=== PATIENT | male | born 1965 | race Two or more races ===

== ENCOUNTER 2016-09-28 02:16 | Emergency (ER) | payer OTHER ==
[~2016-09-28] VITALS: Ht 175.3 cm; Wt 140.6 kg
--- NOTE | 2016-09-28 03:23 | NUR ---
Called to rm, no one in WR.
[2016-09-28] MEDS ORDERED: HYDROMORPHONE INJ 2 MG/ML DISP.SYRIN ONE (03:27)
[2016-09-28] MEDS ORDERED: ONDANSETRON 4 MG TAB.RAPDIS ONE (03:27)
[2016-09-28] MEDS ORDERED: HYDROMORPHONE INJ 2 MG/ML DISP.SYRIN IM ONE (03:30)
[2016-09-28] MEDS ORDERED: ONDANSETRON 4 MG TAB.RAPDIS SL ONE (03:30)
--- NOTE | 2016-09-28 03:30 | NUR ---
50 YO MALE BB SELF. PT IS ALERT X 3, C/O LEFT ARM PIT ABCESS. PT AMBULATED TO ER BED, SKIN WARM AND DRY, RR EVEN AND UNLABORED. AWAITING ORDERS FROM PROVIDER, WILL CONTINUE TO MONITOR
--- NOTE | 2016-09-28 03:35 | NUR ---
MEDICATED PT ORDERED
--- NOTE | 2016-09-28 03:55 | NUR ---
MD VILLAFANA AT BED SIDE FOR I&D
--- NOTE | 2016-09-28 04:30 | NUR ---
PT IS DIAPHORETIC, SPO2 ON ROOM AIR IS 80%. MD NOTIFIED. PLACED PT ON FACE MASK, 6LPM. SPO2 NOW 99 %, WILL CONTINUE TO MONITOR
[2016-09-28] MEDS ORDERED: CEFTRIAXONE 1 G VIAL IM ONE (05:30)
[2016-09-28] MEDS ORDERED: CEFTRIAXONE 1 G VIAL ONE (06:05)
[2016-09-28] MEDS ORDERED: LIDOCAINE /MPF 1% VIAL 5 ML VIAL ONE (06:05)
--- NOTE | 2016-09-28 06:18 | NUR ---
TOOK PT ON FACE MASK, SPO2 IN THE 95% ON ROOM AIR, WILL CONITNUE TO MONITOR
--- NOTE | 2016-09-28 07:56 | NUR ---
REPORT GIVEN TO SANTANA GAN RN FOR OLEG
--- NOTE | 2016-09-28 10:25 | NUR ---
PATIENT ASLEEP.VSS
[2016-09-28 14:12] VITALS: BP 120/82
--- NOTE | 2016-09-28 14:12 | NUR ---
PATIENT DISCHARED,. VSS. AMBULATORY. WILL WAIT FOR CR, ROOM MATE IN THE WAUTING ROOM
== END 2016-09-28 14:13 | disposition home or self-care (01) ==
LOC: ER 02:19
DX: L02.412 Cutaneous abscess of left axilla (principal); E66.01 Morbid (severe) obesity due to excess calories; F15.10 Other stimulant abuse, uncomplicated; I10 Essential (primary) hypertension; E11.9 Type 2 diabetes mellitus without complications; G62.9 Polyneuropathy, unspecified; F20.9 Schizophrenia, unspecified; F17.200 Nicotine dependence, unspecified, uncomplicated; F31.9 Bipolar disorder, unspecified; Z82.49 Family history of ischemic heart disease and other diseases of the circulatory system; Z91.018 Allergy to other foods
CPT/HCPCS: 10060; 96372 ×2; 99284; A4606; A6253; A6402; A6403; A6407; J0696; J1170; Q0162; J3490

== ENCOUNTER 2016-10-04 00:25 | Emergency (ER) | payer OTHER ==
[~2016-10-04] VITALS: Ht 175.3 cm; Wt 140.6 kg
[2016-10-04 00:32] VITALS: BP 135/74
== END 2016-10-04 01:10 | disposition home or self-care (01) ==
LOC: ER 00:25
DX: L02.412 Cutaneous abscess of left axilla (principal); I10 Essential (primary) hypertension; F31.9 Bipolar disorder, unspecified; F20.9 Schizophrenia, unspecified; G62.9 Polyneuropathy, unspecified; G51.0 Bell's palsy; F15.10 Other stimulant abuse, uncomplicated; E11.9 Type 2 diabetes mellitus without complications; Z91.018 Allergy to other foods; Z98.890 Other specified postprocedural states
CPT/HCPCS: A4606; Z7610

== ENCOUNTER 2016-10-06 02:05 | Emergency (ER) | payer OTHER ==
[~2016-10-06] VITALS: Ht 175.3 cm; Wt 140.6 kg
[2016-10-06 02:37] VITALS: BP 143/75
== END 2016-10-06 03:05 | disposition home or self-care (01) ==
LOC: ER 02:08
DX: L02.412 Cutaneous abscess of left axilla (principal); G62.9 Polyneuropathy, unspecified; I10 Essential (primary) hypertension; E11.9 Type 2 diabetes mellitus without complications; F31.9 Bipolar disorder, unspecified; F15.10 Other stimulant abuse, uncomplicated; F20.9 Schizophrenia, unspecified; Z98.890 Other specified postprocedural states; Z91.018 Allergy to other foods
CPT/HCPCS: 99282; A4606; A6407; Z7610

== ENCOUNTER 2017-03-22 11:52 | Emergency (ER) | payer OTHER ==
[~2017-03-22] VITALS: Ht 175.3 cm; Wt 140.6 kg
--- NOTE | 2017-03-22 11:55 | NUR ---
BIBRA 102 AND [employer] FOR DIZZINESS, [id number]/DL IN THE FIELD,FACE SYMMETRICAL. A/OX 4. BREATHING EVEN AND UNLABORED. NO SOB. VITALS STABLE. IV INTACT AND PATENT ON LAC, 18 G. SAFETY AND COMFORT MEASURES IN PLACE. AWAITING MD ORDERS.
[2017-03-22] MEDS ORDERED: IV NS 0.9% 1,000 ML BAG IV ONE (12:00)
--- NOTE | 2017-03-22 12:03 | NUR ---
IVF STARTED LAC, 18 G. TOLERATING WELL.
--- NOTE | 2017-03-22 12:12 | NUR ---
REPEAT BLOOD SUGAR, 360. MD INFORMED.
[2017-03-22 12:30] LABS: BASOPHILS % (AUTO) 0.8 % (0.0-2.0); EOSINOPHILS # (AUTO) 0.1 /CMM (0.0-0.7); EOSINOPHILS % (AUTO) 2.4 % (0.0-6.0); HEMATOCRIT 39 % (39-51); LYMPHOCYTES # (AUTO) 1.3 /CMM (0.8-4.8); MEAN CORPUSCULAR HEMOGLOBIN 28 PG (26.0-33.0); MEAN CORPUSCULAR HGB CONC 34 g/dl (31.0-36.0); MEAN CORPUSCULAR VOLUME 84 fL (80-96); MONOCYTES # (AUTO) 0.4 /CMM (0.1-1.30); MONOCYTES % (AUTO) 6.9 % (2.0-12.0); NEUTROPHILS # (AUTO) 3.3 /CMM (1.8-8.9); NEUTROPHILS % (AUTO) 63.9 % (43.0-81.0); PLATELET COUNT (AUTO) 161 /CMM (150-450); RDW COEFFICIENT OF VARIATION 13.6 (11.5-15.0); WHITE BLOOD COUNT (AUTO) 5.1 K/uL (4.3-11.0)
[2017-03-22] MEDS ORDERED: INSULIN REGULAR, HUMAN 100 UNIT/ML 10 ML VIAL ONE (12:30)
[2017-03-22] MEDS ORDERED: INSULIN REGULAR, HUMAN 100 UNIT/ML 10 ML VIAL SQ ONE (12:30)
[2017-03-22 12:49] LABS: ALANINE AMINOTRANSFERASE 53 U/L (12-78); ALKALINE PHOSPHATASE 78 U/L (46-116); ASPARTATE AMINOTRANSFERASE 67 U/L (15-37); BILIRUBIN,DIRECT 0.2 mg/dL (0.0-0.2); BILIRUBIN,TOTAL 0.6 mg/dL (0.2-1.0); CALCIUM, SERUM 8.2 mg/dL (8.5-10.1); CARBON DIOXIDE 24 mmol/L (21-32); CHLORIDE 98 mmol/L (98-107); CREATININE 1.2 mg/dL (0.6-1.3); LIPASE 188 U/L (73-393); POTASSIUM 3.7 mmol/L (3.5-5.1); SODIUM SERUM 132 mmol/L (136-145); TOTAL PROTEIN, SERUM 8.5 g/dL (6.4-8.2); UREA NITROGEN, BLOOD 12 mg/dL (7-18)
[2017-03-22 12:50] LABS: GLUCOSE 399 mg/dL (74-106)
[2017-03-22 12:51] LABS: TROPONIN I < 0.017 ng/mL (0.00-0.056)
[2017-03-22 13:30] VITALS: BP 124/78
--- NOTE | 2017-03-22 13:31 | NUR ---
IV removed. Catheter intact and site benign. Pressure and 4x4 applied to site. No bleeding noted. Patient discharged in custody in stable condition. Written and verbal after care instructions given. Patient verbalizes understanding of instruction.
== END 2017-03-22 13:31 ==
LOC: ER 11:56
DX: R42 Dizziness and giddiness (principal); E11.65 Type 2 diabetes mellitus with hyperglycemia; G62.9 Polyneuropathy, unspecified; I10 Essential (primary) hypertension; F20.9 Schizophrenia, unspecified; F31.9 Bipolar disorder, unspecified; F17.200 Nicotine dependence, unspecified, uncomplicated; F15.10 Other stimulant abuse, uncomplicated; G51.0 Bell's palsy; Z91.018 Allergy to other foods; Z98.890 Other specified postprocedural states
CPT/HCPCS: 36415; 71010; 80048; 80076; 82962 ×2; 83690; 84484; 85025; 93005; 96360; 96372; 99285; A4606; J1815; J7030; Z7610

== ENCOUNTER 2017-12-05 10:20 | Inpatient (IN) | payer OTHER ==
--- NOTE | 2017-12-05 12:00 | NUR ---
RN NOTE PATIENT WAS TRANSFERRED FROM [facility], [place], [place] REPORT WAS GIVEN MARI, RECEIVED REPORT FROM MARI. RECEIVED PATIENT 52 YEAR OLD MALE BROUGHT IN TO THE HOSPITAL BY AMBULANCE, PATIENT ALERT AND ORIENT X1, HE IS ONLY ABLE TO RESPOND TO HIS NAME AT THIS TIME. PATIENT IS LETHARGIC BUT RESPONSIVE. BREATHING EVEN AND UNLABORED WITH CONTINUOUS O2 OF 2L VIA N/C. ON BIAS CUTTER NORMAL SINUS HR OF 70. F/C INTACT AND PATENT WITH ADEQUATE FLOW OF URINE, JUAN COLOR NOTED. LEFT AC IV SITE INTACT AND PATENT. WOUND PICTURES TAKEN AND DOCUMENTED IN CHART. PATIENT VITAL SIGNS DOCUMENTED AND STABLE. ALL SAFETY MEASURES DONE. BED LOCKED AND LOW POSITION, WITH BED ALARM IN PLACE. PLACED CALL LIGHT WITHIN REACH. WILL CONTINUE TO MONITOR PATIENT CLOSELY
[2017-12-05 12:10] VITALS: BP 111/72
[2017-12-05] MEDS ORDERED: IV NS 0.9% 1,000 ML IV PRN (13:52)
[2017-12-05] MEDS ORDERED: MAGNESIUM HYDROXIDE 30 ML UDC PO PRN (14:00)
[2017-12-05] MEDS ORDERED: Z GUARD REMEDY 2 OZ OINT TP PRN (14:00)
[2017-12-05] MEDS ORDERED: ACETAMINOPHEN 325 MG TABLET PO PRN (14:00)
[2017-12-05] MEDS ORDERED: MAG HYDROX/AL HYDROX/SIMETH 30 ML UDC PO PRN (14:00)
[2017-12-05] MEDS ORDERED: ONDANSETRON HCL/PF 4 MG/2 ML VIAL IVP PRN (14:00)
[2017-12-05 15:15] LABS: ABG BASE EXCESS -4.9 mmol/L; ABG OXYGEN SATURATION 96.1 % (92.0-98.5); ABG PCO2 31.8 mmHg (35.0-45.0); ABG PH 7.391 (7.350-7.450); ABG PO2 90.4 mmHg (75.0-100.0); AaDO2 71.7 mmHg; COHb 0.3 % (0.5-1.5); MetHb 0.6 % (0.0-1.5); O2Hb 95.2 % (94.0-97.0); SITE, ABG Right Brachial; VENT MODE, BG NASAL CANNULA
[2017-12-05] MEDS: CEFTRIAXONE 1 G in IV NS 0.9% 50 ML IV SCH (15:37)
[2017-12-05 16:00] VITALS: BP 115/78
[2017-12-05 16:05] LABS: BASOPHILS % (AUTO) 0.2 % (0.0-2.0); HEMATOCRIT 42 % (39-51); HEMOGLOBIN 14.2 g/dL (13.5-17.5); LYMPHOCYTES # (AUTO) 1.4 /CMM (0.8-4.8); MEAN CORPUSCULAR HEMOGLOBIN 29 PG (26.0-33.0); MEAN CORPUSCULAR HGB CONC 34 g/dl (31.0-36.0); MEAN CORPUSCULAR VOLUME 87 fL (80-96); MONOCYTES % (AUTO) 8.1 % (2.0-12.0); NEUTROPHILS # (AUTO) 9.9 /CMM (1.8-8.9); NEUTROPHILS % (AUTO) 80.7 % (43.0-81.0); PLATELET COUNT (AUTO) 145 /CMM (150-450); RDW COEFFICIENT OF VARIATION 15.6 (11.5-15.0); RED BLOOD CELL COUNT(AUTO) 4.82 MIL/uL (4.5-6.0); WHITE BLOOD COUNT (AUTO) 12.3 K/uL (4.3-11.0)
[2017-12-05 16:14] LABS: APPEARANCE,URINE CLOUDY (CLEAR); BILIRUBIN,URINE 2+ (NEGATIVE); BLOOD, URINE 3+ Ery/uL (NEGATIVE); COLOR,URINE DARK YELLO (YELLOW); KETONES,URINE 1+ (NEGATIVE); LEUKOCYTE ESTERASE ,URINE NEGATIVE (NEGATIVE); NITRITE, URINE NEGATIVE (NEGATIVE); PH,URINE 5.5 (5.0-8.0); PROTEIN,URINE 2+ mg/dl (NEGATIVE); UGLUCOSE NEGATIVE (NEGATIVE)
[2017-12-05 16:19] LABS: ALBUMIN 3.2 g/dL (3.4-5.0); BILIRUBIN,TOTAL 0.9 mg/dL (0.2-1.0); CALCIUM, SERUM 8.5 mg/dL (8.5-10.1); CREATININE 2.9 mg/dL (0.6-1.3); POTASSIUM 3.3 mmol/L (3.5-5.1)
[2017-12-05 16:21] LABS: TROPONIN I 0.052 ng/mL (0.00-0.056)
[2017-12-05 16:33] LABS: BACTERIA,URINE Moderate /HPF (None Seen); SQUAMOUS EPITHELIAL CELL,UR Moderate /HPF (None Seen)
[2017-12-05 16:34] LABS: FINE GRANULAR CASTS,URINE Rare /LPF (None Seen); HYALINE CASTS, URINE Rare /LPF (None Seen)
[2017-12-05 16:45] LABS: THYROID STIMULATING HORMONE 5.902 uIU/mL (0.358-3.74)
--- NOTE | 2017-12-05 19:30 | NUR ---
ARNULFO NOTES RECEIVED PT SLEEPING BUT AROUSES EASILY,RESPONDS TO NAME,FOLLOWS SIMPLE COMMANDS.MONITOR SHOWS NSR RATE OF 92/MIN.DENIES PAIN OR DISCOMFORT.OFFERS NO COMPLAINTS.
[2017-12-05 20:01] VITALS: BP 115/80
[2017-12-05] MEDS: IV NS 0.9% 1,000 ML IV PRN (22:25)
[2017-12-06] VITALS (7 sets, daily range): BP systolic 107–143; BP diastolic 65–86
--- NOTE | 2017-12-06 | NUR ---
ARNULFO/NOTES VSS.LETHARGIC AT TIMES,AROUSES EASILY.TAKING ICE CHIPS WITHOUT DIFFICULTY.MONITOR NSR.
[2017-12-06] MEDS: IV NS 0.9% 1,000 ML IV PRN ×3 (05:37→18:36)
--- NOTE | 2017-12-06 06:30 | NUR ---
ARNULFO NOTES IV SITE REDRESSED,LEAKING,WITH EXCELLENT BLOOD RETURN.MEPILEX TO RT THIGH CHANGED,AND MEPILEX APPLIED TO RT MIDBACK.PT RESPONDS TO NAME,VERBAL AT TIMES.
[2017-12-06 06:46] LABS: HEMATOCRIT 40 % (39-51); HEMOGLOBIN 13.6 g/dL (13.5-17.5); LYMPHOCYTES # (AUTO) 1.2 /CMM (0.8-4.8); LYMPHOCYTES % (AUTO) 8.9 % (20.0-44.0); MEAN CORPUSCULAR HEMOGLOBIN 30 PG (26.0-33.0); MEAN CORPUSCULAR HGB CONC 34 g/dl (31.0-36.0); MEAN CORPUSCULAR VOLUME 88 fL (80-96); MONOCYTES # (AUTO) 0.7 /CMM (0.1-1.30); MONOCYTES % (AUTO) 5.7 % (2.0-12.0); NEUTROPHILS % (AUTO) 85.4 % (43.0-81.0); PLATELET COUNT (AUTO) 122 /CMM (150-450); RDW COEFFICIENT OF VARIATION 15.3 (11.5-15.0); RED BLOOD CELL COUNT(AUTO) 4.51 MIL/uL (4.5-6.0); WHITE BLOOD COUNT (AUTO) 12.9 K/uL (4.3-11.0)
[2017-12-06 07:12] LABS: CALCIUM, SERUM 8.3 mg/dL (8.5-10.1); PHOSPHORUS 4.1 mg/dL (2.5-4.9); POTASSIUM 3.3 mmol/L (3.5-5.1)
--- NOTE | 2017-12-06 07:15 | NUR ---
RN ARNULFO INITIAL NOTES RECEIVED REPORT AND PT FROM PM NURSE. PT RESTING IN BED, A&O X1-2 LETHARGIC AT TIMES DUE TO MENTAL STATUS, MUMBLES SOME WORDS, ON 2L NC SAT ABOVE 97% NO SOB OR ACUTE DISTRESS AT THIS TIME, TIAN CATH DRAINING URINE VIA GRAVITY, LT AC IV RUNNING NS @ 150 ML/HR. NO INFILTRATION NOTED. ALL SAFETY MEASURES INITIATED. PTS NEEDS HANG BED, DVT PUMPS IN PLACE AND ON, ON TELE MON SR WITH HR 60, WILL CONTINUE TO MONITOR.
[2017-12-06 07:17] LABS: CREATINE KINASE MB 9.5 ng/mL (0-3.6)
--- NOTE | 2017-12-06 07:33 | NUR ---
ARNULFO NOTES. REPORT AND CARE OF PT GIVEN TO ARMAND HAJI.
[2017-12-06] MEDS ORDERED: HYDROGEL DRESSING 90 GM TUBE TP SCH (09:00)
[2017-12-06] MEDS ORDERED: HYDROGEL DRESSING 90 GM TUBE TP PRN ×2 (09:00→17:00)
--- NOTE | 2017-12-06 09:02 | NUR ---
WOUND CARE CONSULT: PT PRESENTS WITH IMMOBILITY AND DEEP TISSUE INJURIES (INTACT) TO RT LATERAL ANKLE AND UPPER BACK WELL DEEP TISSUE INJURY IN EVOLUTION TO RT HIP, ALL PRESENT ON ADMISSION. [place] BED WITH ETS AIR ORDERED FOR PT. CURRENT STEFANY SCORE IS 11. ALL SKIN PROTECTION AND WOUND CARE RECOMMENDATIONS DISCUSSED WITH NURSING STAFF. WILL SEE PRN. MANSFIELD IN AGREEMENT WITH PLAN OF CARE. PT NOTED TO HAVE LONG TOENAILS AND FINGERNAILS. Addendum: 12/06/17 at 0906 by KAMI ESCALONA WNDNU Amended: Links added.
--- NOTE | 2017-12-06 11:16 | NUR ---
ADITHYA ARNULFO NOTES CHATO FROM [facility] CALLED AND CONFIRMED POSITIVE BLOOD CULTURES 2 SETS ONE GRAM POSITIVE COCCI IN CLUSTERS AND ONE POSITIVE FOR COAGULASE STAPHYLOCCUCCUS.
[2017-12-06] MEDS ORDERED: POTASSIUM CL. PREMIX PERIPHER. 50 ML IV SCH (11:30)
--- NOTE | 2017-12-06 13:57 | NUR ---
RN ARNULFO NOTES PT MORE ALERT AND ORIENTED X2 ABLE TO SPEAK, STATES WOULD LIKE SOME ICE CHIPS AND FOOD, DIET ORDERED WILL NEED TO FEED PT, WILL CONTINUE TO MONITOR.
[2017-12-06] MEDS ORDERED: DEXTROSE 50%-WATER 50 ML DISP.SYRIN IV PRN (14:00)
[2017-12-06] MEDS: CEFTRIAXONE 1 G in IV NS 0.9% 50 ML IV SCH (14:08)
[2017-12-06] MEDS: BLOOD SUGAR DIAGNOSTIC 1 EACH STRIP IN SCH ×2 (17:38→22:01)
[2017-12-06] MEDS: HYDROGEL DRESSING 90 GM TUBE TP SCH (17:39)
[2017-12-06 19:41] LABS: BILIRUBIN,TOTAL 0.7 mg/dL (0.2-1.0)
[2017-12-06 19:42] LABS: ALBUMIN 2.6 g/dL (3.4-5.0); BILIRUBIN,DIRECT 0.3 mg/dL (0.0-0.2)
--- NOTE | 2017-12-06 20:15 | NUR ---
ARNULFO RN OPENING NOTES RECEIVED REPORT FROM ARMAND HAJI. PATIENT A/O X2 W/ LETHARGY BUT EASILY AROUSABLE TO VERBAL & TACTILE STIMULI. ABLE TO STATE NAME & PLACE & FOLLOW SIMPLE COMMANDS. BREATHING EVEN & UNLABORED, TOLERATING O2 @ 2LPM VIA NC & SATING WELL @ 97%. ON TELE W/ SINUS RHYTHM, HR 90S. DENIES ANY RESPIRATORY OR CARDIAC DISTRESS. LEFT AC IV INTACT & PATENT W/ DRESSING CDI & IVF NS INFUSING WELL 150 ML/HR. DENIES ANY PAIN OR DISCOMFORT @ THIS TIME. SAFETY MEASURES MAINTAINED W/ BED ALARM ON & CALL LIGHT WITHIN REACH. WILL CONTINUE TO MONITOR.
--- NOTE | 2017-12-06 20:30 | NUR ---
ARNULFO RN NOTES FED PATIENT 25% OF HIS DINNER. NO COUGHING NOTED WHEN SWALLOWING. ABLE TO TOLERATE REGULAR TEXTURE FOOD & THIN LIQUIDS. HOB ELEVATED WHEN FEEDING & BEFORE & AFTER EATING.
[2017-12-06] MEDS: INSULIN REGULAR, HUMAN 100 UNIT/ML 3 ML VIAL SQ PRN (22:01)
[2017-12-07] VITALS: BP 98/70
[2017-12-07] MEDS: IV NS 0.9% 1,000 ML IV PRN ×2 (03:18→10:40)
[2017-12-07 04:00] VITALS: BP 122/71
[2017-12-07 07:22] LABS: CALCIUM, SERUM 8.3 mg/dL (8.5-10.1); CREATININE 1.4 mg/dL (0.6-1.3); POTASSIUM 3.4 mmol/L (3.5-5.1)
[2017-12-07 08:00] VITALS: BP 110/66
[2017-12-07 08:12] LABS: BASOPHILS % (AUTO) 0.2 % (0.0-2.0); EOSINOPHILS % (AUTO) 0.1 % (0.0-6.0); HEMATOCRIT 34 % (39-51); HEMOGLOBIN 11.9 g/dL (13.5-17.5); LYMPHOCYTES # (AUTO) 1.3 /CMM (0.8-4.8); LYMPHOCYTES % (AUTO) 12.9 % (20.0-44.0); MEAN CORPUSCULAR HEMOGLOBIN 30 PG (26.0-33.0); MEAN CORPUSCULAR HGB CONC 35 g/dl (31.0-36.0); MEAN CORPUSCULAR VOLUME 86 fL (80-96); MONOCYTES # (AUTO) 0.6 /CMM (0.1-1.30); NEUTROPHILS # (AUTO) 8.2 /CMM (1.8-8.9); NEUTROPHILS % (AUTO) 80.8 % (43.0-81.0); PLATELET COUNT (AUTO) 86 /CMM (150-450); RDW COEFFICIENT OF VARIATION 14.6 (11.5-15.0); RED BLOOD CELL COUNT(AUTO) 3.92 MIL/uL (4.5-6.0); WHITE BLOOD COUNT (AUTO) 10.1 K/uL (4.3-11.0)
[2017-12-07] MEDS: BLOOD SUGAR DIAGNOSTIC 1 EACH STRIP IN SCH ×4 (08:14→21:58)
[2017-12-07 08:18] LABS: APPEARANCE,URINE TURBID (CLEAR); BILIRUBIN,URINE NEGATIVE (NEGATIVE); BLOOD, URINE 2+ Ery/uL (NEGATIVE); COLOR,URINE YELLOW (YELLOW); KETONES,URINE NEGATIVE (NEGATIVE); LEUKOCYTE ESTERASE ,URINE NEGATIVE (NEGATIVE); NITRITE, URINE NEGATIVE (NEGATIVE); PROTEIN,URINE TRACE mg/dl (NEGATIVE); UGLUCOSE NEGATIVE (NEGATIVE)
[2017-12-07 08:44] LABS: ALBUMIN 2.4 g/dL (3.4-5.0); BILIRUBIN,DIRECT 0.2 mg/dL (0.0-0.2); BILIRUBIN,TOTAL 0.7 mg/dL (0.2-1.0); TOTAL PROTEIN, SERUM 6.7 g/dL (6.4-8.2)
[2017-12-07 08:45] LABS: WBC,URINE 0-2 /HPF (0-3)
[2017-12-07 08:46] LABS: BACTERIA,URINE Few /HPF (None Seen)
[2017-12-07 08:47] LABS: SQUAMOUS EPITHELIAL CELL,UR Rare /HPF (None Seen); URIC ACID CRYSTALS,URINE Few /HPF (None Seen)
[2017-12-07 08:48] LABS: URINE AMORPHOUS URATE Many /HPF (None Seen)
--- NOTE | 2017-12-07 09:04 | NUR ---
received pt from night, shift, alert, follows commands, SR, on 2L 02 sat well, lungs clear no edema, tolerates diet, f/c low output, MD aware, v/s stable, no pain, pt turned and repositioned.
[2017-12-07] MEDS: HYDROGEL DRESSING 90 GM TUBE TP SCH (09:29)
[2017-12-07] MEDS ORDERED: POTASSIUM CHLORIDE 20 MEQ TAB.PRT.SR PO SCH (11:00)
[2017-12-07 11:11] LABS: LYMPHOCYTES % (MANUAL) 14 % (16-48); MONOCYTES % (MANUAL) 1 % (0-11.0); NEUTROPHILS % (MANUAL) 85 (42-76)
[2017-12-07 11:34] LABS: APPEARANCE,URINE CLEAR (CLEAR); BILIRUBIN,URINE NEGATIVE (NEGATIVE); BLOOD, URINE 2+ Ery/uL (NEGATIVE); COLOR,URINE YELLOW (YELLOW); KETONES,URINE NEGATIVE (NEGATIVE); LEUKOCYTE ESTERASE ,URINE NEGATIVE (NEGATIVE); NITRITE, URINE NEGATIVE (NEGATIVE); PROTEIN,URINE 1+ mg/dl (NEGATIVE); UGLUCOSE NEGATIVE (NEGATIVE)
[2017-12-07 12:00] VITALS: BP 102/66
[2017-12-07 12:49] LABS: BACTERIA,URINE Few /HPF (None Seen); SQUAMOUS EPITHELIAL CELL,UR Few /HPF (None Seen); WBC,URINE 0-2 /HPF (0-3)
[2017-12-07] MEDS: CEFTRIAXONE 1 G in IV NS 0.9% 50 ML IV SCH (14:05)
[2017-12-07 16:00] VITALS: BP 109/68
--- NOTE | 2017-12-07 16:12 | NUR ---
pt is resting in the bed, alert, follows commands, drowsy, SR, v/s stable, no pain, pt cleaned, changed and repositioned q2hrs.
[2017-12-07 20:00] VITALS: BP 115/74
--- NOTE | 2017-12-07 20:58 | NUR ---
ARNULFO RN INITIAL NOTES RECEIVED REPORT FROM RUDDY HAJI. PATIENT A/O X2 W/ LETHARGY BUT EASILY AROUSABLE TO VERBAL & TACTILE STIMULI. ABLE TO STATE NAME & PLACE & FOLLOW SIMPLE COMMANDS. BREATHING EVEN & UNLABORED, TOLERATING O2 @ 2LPM VIA NC & SATING WELL @ 98%. ON TELE W/ SINUS RHYTHM, HR 78'S. DENIES ANY SOB. LEFT AC IV INTACT & PATENT W/ DRESSING CDI & IVF NS INFUSING WELL 150 ML/HR. DENIES ANY PAIN OR DISCOMFORT @ THIS TIME. SAFETY MEASURES MAINTAINED W/ BED ALARM ON & CALL LIGHT WITHIN REACH. WILL CONTINUE TO MONITOR.
[2017-12-08] VITALS: BP 141/80
[2017-12-08] MEDS: IV NS 0.9% 1,000 ML IV PRN ×3 (01:23→18:02)
[2017-12-08 04:00] VITALS: BP 112/74
--- NOTE | 2017-12-08 06:44 | NUR ---
RN ARNULFO CLOSING NOTE PT ENDORSED ASLEEP IN BED, AWOKEN THROUGH TO BE CLEANED AND REPOSITIONED, PT REFUSED, AGREED TO REPOSITION BUT NOT WOUND TX AND BED BATH, OFFERED X3, RISK AND BENEFIT EXPLAINED, NO REASON GIVEN BY PT, WILL ENDORSE FOR AM SHIFT NURSE TO F/U WITH PT NON COMPLIANCE BEHAVIOR W/CARE PROVIDED, CL WITHIN REACH ALL NEEDS ATTENDED.
[2017-12-08 08:00] VITALS: BP 105/67
[2017-12-08] MEDS: BLOOD SUGAR DIAGNOSTIC 1 EACH STRIP IN SCH ×4 (08:17→21:48)
[2017-12-08] MEDS: HYDROGEL DRESSING 90 GM TUBE TP SCH (08:18)
[2017-12-08 12:00] VITALS: BP 127/77
[2017-12-08 12:26] LABS: BASOPHILS % (AUTO) 0.4 % (0.0-2.0); EOSINOPHILS % (AUTO) 0.8 % (0.0-6.0); HEMATOCRIT 38 % (39-51); HEMOGLOBIN 12.8 g/dL (13.5-17.5); LYMPHOCYTES # (AUTO) 0.9 /CMM (0.8-4.8); LYMPHOCYTES % (AUTO) 13.6 % (20.0-44.0); MEAN CORPUSCULAR HEMOGLOBIN 30 PG (26.0-33.0); MEAN CORPUSCULAR HGB CONC 34 g/dl (31.0-36.0); MEAN CORPUSCULAR VOLUME 86 fL (80-96); MONOCYTES # (AUTO) 0.4 /CMM (0.1-1.30); NEUTROPHILS # (AUTO) 5.5 /CMM (1.8-8.9); NEUTROPHILS % (AUTO) 79.2 % (43.0-81.0); PLATELET COUNT (AUTO) 72 /CMM (150-450); RDW COEFFICIENT OF VARIATION 14.9 (11.5-15.0); RED BLOOD CELL COUNT(AUTO) 4.36 MIL/uL (4.5-6.0); WHITE BLOOD COUNT (AUTO) 6.9 K/uL (4.3-11.0)
[2017-12-08 12:34] LABS: CALCIUM, SERUM 7.7 mg/dL (8.5-10.1); CREATININE 1.2 mg/dL (0.6-1.3); POTASSIUM 3.7 mmol/L (3.5-5.1)
[2017-12-08] MEDS: INSULIN REGULAR, HUMAN 100 UNIT/ML 3 ML VIAL SQ PRN (12:57)
--- NOTE | 2017-12-08 13:05 | NUR ---
WOUND CARE CONSULT: PT PRESENTS WITH DEEP TISSUE INJURY TO SACRUM WHICH IS INTACT WITH INTACT BLISTER TO RT BUTTOCK. PT CONTINUES TO PRESENT WITH DEEP TISSUE INJURIES TO RT UPPER BACK AND HIP AREAS, PRESENT ON ADMISSION, WHICH ARE NOW IN EVOLUTION. RECOMMENDATIONS MADE FOR SKIN PROTECTION AND WOUND CARE. DISCUSSED WITH NURSING STAFF. PT ON [facility] ETS AIR BED. ALL SKIN PROTECTION MEASURES IN PLACE. WILL SEE PRN. MANSFIELD IN AGREEMENT WITH PLAN OF CARE. Addendum: 12/08/17 at 1307 by KAMI ESCALONA WNDNU Amended: Links added.
[2017-12-08 13:16] LABS: LYMPHOCYTES % (MANUAL) 9 % (16-48); MONOCYTES % (MANUAL) 3 % (0-11.0); NEUTROPHILS % (MANUAL) 88 (42-76)
[2017-12-08] MEDS: CEFTRIAXONE 1 G in IV NS 0.9% 50 ML IV SCH (14:39)
--- NOTE | 2017-12-08 15:00 | NUR ---
RN NOTE PT REPORTED THAT HE URINATED HIMSELF OVER TIAN CATHETER, TIAN CATHETER FLUSHED WITH SOME RESISTANCE AND PAIN REPORTED BY PATIENT. BLADDER CHECKED LATER FOR RESIDUALS, URINE RESIDUALS WAS MAX 60 ML, PER BLADDER SCANNER. URINE COLOR IS DARK ORANGE AND CLOUDY/WITH SEDIMENTS. MD AWARE. TO KEEP TIAN IN PLACE FOR NOW.
[2017-12-08 15:44] LABS: APPEARANCE,URINE CLOUDY (CLEAR); BILIRUBIN,URINE 1+ (NEGATIVE); BLOOD, URINE 3+ Ery/uL (NEGATIVE); COLOR,URINE DARK YELLO (YELLOW); KETONES,URINE NEGATIVE (NEGATIVE); LEUKOCYTE ESTERASE ,URINE TRACE (NEGATIVE); NITRITE, URINE NEGATIVE (NEGATIVE); PROTEIN,URINE 1+ mg/dl (NEGATIVE); UGLUCOSE 1+ mg/dL (NEGATIVE); UROBILINOGEN,URINE >=8.0 EU/dL (0.2)
[2017-12-08 15:51] LABS: BACTERIA,URINE Few /HPF (None Seen); SQUAMOUS EPITHELIAL CELL,UR Few /HPF (None Seen); URINE AMORPHOUS URATE Many /HPF (None Seen)
[2017-12-08 16:00] VITALS: BP 119/72
[2017-12-08 20:00] VITALS: BP 105/70
[2017-12-09] VITALS (7 sets, daily range): BP systolic 111–142; BP diastolic 55–77
[2017-12-09] MEDS: IV NS 0.9% 1,000 ML IV PRN ×3 (01:52→15:59)
[2017-12-09] MEDS: BLOOD SUGAR DIAGNOSTIC 1 EACH STRIP IN SCH ×4 (06:35→22:06)
--- NOTE | 2017-12-09 07:30 | NUR ---
PRESCHOOL ASSISTANT PRINCIPAL INITIAL NOTES: RECEIVED PT IN BED SLEEPING BUT EASY TO AROUSE. A&O X2 WITH PERIODS OF LETHARGY NOTED. ON O2 VIA NC AT 2LPM, SATURATING 97%. ON TELE MONITOR, SINUS AMMY, HR 53 AT THIS TIME. TIAN CATH IN PLACE DRAINING DARK URINE. TREATMENTS TO R HIP AND SACRAL AREA IN PLACE. IV TO RFA #[address], CONNECTED TO NS AT 150ML/HR. PT DENIES ANY PAIN OR DISCOMFORT AT THIS TIME. BED IN LOW LOCKED POSITION, CALL LIGHT WITHIN REACH. WILL CONTINUE TO MONITOR.
[2017-12-09] MEDS: HYDROGEL DRESSING 90 GM TUBE TP SCH (08:36)
--- NOTE | 2017-12-09 10:15 | NUR ---
MERVAT JUDD AT BEDSIDE TO ASSESS PT.
--- NOTE | 2017-12-09 11:05 | NUR ---
URINE COLLECTED FOR UA, SPECIMEN IN [place]. CALLED TO LAB FOR SAP BODS DEVELOPER.
[2017-12-09 11:13] LABS: CALCIUM, SERUM 7.4 mg/dL (8.5-10.1); CREATININE 0.9 mg/dL (0.6-1.3); POTASSIUM 3.2 mmol/L (3.5-5.1)
[2017-12-09 11:40] LABS: BASOPHILS % (AUTO) 0.4 % (0.0-2.0); EOSINOPHILS % (AUTO) 1.4 % (0.0-6.0); HEMATOCRIT 34 % (39-51); HEMOGLOBIN 11.6 g/dL (13.5-17.5); LYMPHOCYTES # (AUTO) 0.9 /CMM (0.8-4.8); LYMPHOCYTES % (AUTO) 14.7 % (20.0-44.0); MEAN CORPUSCULAR HEMOGLOBIN 30 PG (26.0-33.0); MEAN CORPUSCULAR HGB CONC 34 g/dl (31.0-36.0); MEAN CORPUSCULAR VOLUME 87 fL (80-96); MONOCYTES # (AUTO) 0.4 /CMM (0.1-1.30); MONOCYTES % (AUTO) 6.4 % (2.0-12.0); NEUTROPHILS # (AUTO) 4.7 /CMM (1.8-8.9); NEUTROPHILS % (AUTO) 77.1 % (43.0-81.0); PLATELET COUNT (AUTO) 71 /CMM (150-450); RDW COEFFICIENT OF VARIATION 14.9 (11.5-15.0); RED BLOOD CELL COUNT(AUTO) 3.86 MIL/uL (4.5-6.0); WHITE BLOOD COUNT (AUTO) 6.1 K/uL (4.3-11.0)
[2017-12-09] MEDS: INSULIN REGULAR, HUMAN 100 UNIT/ML 3 ML VIAL SQ PRN (12:12)
[2017-12-09 13:17] LABS: APPEARANCE,URINE CLEAR (CLEAR); BILIRUBIN,URINE NEGATIVE (NEGATIVE); BLOOD, URINE 3+ Ery/uL (NEGATIVE); COLOR,URINE YELLOW (YELLOW); KETONES,URINE NEGATIVE (NEGATIVE); LEUKOCYTE ESTERASE ,URINE TRACE (NEGATIVE); NITRITE, URINE NEGATIVE (NEGATIVE); PROTEIN,URINE TRACE mg/dl (NEGATIVE); UGLUCOSE 1+ mg/dL (NEGATIVE)
[2017-12-09 13:30] LABS: BACTERIA,URINE None seen /HPF (None Seen); RBC,URINE 81-100 /HPF (0-2); SQUAMOUS EPITHELIAL CELL,UR Few /HPF (None Seen); WBC,URINE NONE SEEN /HPF (0-3)
[2017-12-09] MEDS: CEFTRIAXONE 1 G in IV NS 0.9% 50 ML IV SCH (14:31)
[2017-12-09] MEDS ORDERED: POTASSIUM CHLORIDE 20 MEQ TAB.PRT.SR PO ONE (16:00)
[2017-12-09] MEDS ORDERED: POTASSIUM CHLORIDE 20 MEQ POWDER PACKET PO ONE (16:00)
[2017-12-09] MEDS: Sodium Bicarbonate 50 MEQ in IV NS 0.9% 1,000 ML IV PRN (17:52)
--- NOTE | 2017-12-09 18:45 | NUR ---
CARTON FILLING MACHINE OPERATOR END NOTES: PT REMAINS IN BED, AWAKE WITH SOME LETHARGY NOTED. A&O X2. PT CONNECTED TO FLUIDS,NA BICARB AT 150ML/HR ORDERED, TOLERATING WELL. C/O PAIN WITH TIAN CATH, FLUSHED AND FIXED TIAN. WAS EFFECTIVE. PT DENIES ANY PAIN OR DISCOMFORT AT THIS TIME. PT ON O2 VIA NC, NO SOB OR RESPIRATORY DISTRESS NOTED AT THIS TIME. BED IN LOW LOCKED POSITION, CALL LIGHT WITHIN REACH. WILL ENDORSE TO PM SHIFT FOR CONTINUITY OF CARE.
[2017-12-10] VITALS: BP 124/71
[2017-12-10] MEDS: Sodium Bicarbonate 50 MEQ in IV NS 0.9% 1,000 ML IV PRN ×3 (01:15→21:30)
[2017-12-10 04:00] VITALS: BP 129/66
[2017-12-10] MEDS: BLOOD SUGAR DIAGNOSTIC 1 EACH STRIP IN SCH ×4 (06:41→21:30)
--- NOTE | 2017-12-10 07:15 | NUR ---
LEAD INGOT MOLDER INITIAL NOTES RECEIVED REPORT AND PT FROM PM NURSE. PT RESTING IN BED WITH NO ACUTE DISTRESS OR SOB, PT ON HANG BED, A&O X3 STILL VERY WEAK BUT MORE ALERT AND VERBAL, ON 2L NC SAT ABOVE 97%, TIAN CATH DRAINING URINE VIA GRAVITY, ON TELE MON SR 60. RT FA 20G IV NS RUNNING FLUIDS NO INFILTRATION NOTED, ALL NEEDS MET ALL SAFETY MEASURES INITIATED, WILL CONTINUE TO MONITOR.
[2017-12-10 08:00] VITALS: BP 131/76
[2017-12-10] MEDS: HYDROGEL DRESSING 90 GM TUBE TP SCH (08:34)
[2017-12-10 11:50] LABS: HEMATOCRIT 34 % (39-51); HEMOGLOBIN 11.7 g/dL (13.5-17.5); MEAN CORPUSCULAR HEMOGLOBIN 30 PG (26.0-33.0); MEAN CORPUSCULAR HGB CONC 34 g/dl (31.0-36.0); MEAN CORPUSCULAR VOLUME 86 fL (80-96); RDW COEFFICIENT OF VARIATION 15.4 (11.5-15.0); RED BLOOD CELL COUNT(AUTO) 3.96 MIL/uL (4.5-6.0); WHITE BLOOD COUNT (AUTO) 5.9 K/uL (4.3-11.0)
[2017-12-10 11:51] LABS: BASOPHILS % (AUTO) 0.3 % (0.0-2.0); EOSINOPHILS % (AUTO) 1.9 % (0.0-6.0); LYMPHOCYTES % (AUTO) 18.9 % (20.0-44.0); NEUTROPHILS % (AUTO) 71.9 % (43.0-81.0); PLATELET COUNT (AUTO) 85 /CMM (150-450)
[2017-12-10 11:58] LABS: CALCIUM, SERUM 7.3 mg/dL (8.5-10.1); CREATININE 0.8 mg/dL (0.6-1.3); POTASSIUM 3.3 mmol/L (3.5-5.1)
[2017-12-10 12:00] VITALS: BP 136/72
[2017-12-10 12:09] LABS: BAND % (MANUAL) 1 % (0.0-5.0); EOSINOPHILS % (MANUAL) 2 % (0-4); LYMPHOCYTES % (MANUAL) 16 % (16-48); MONOCYTES % (MANUAL) 7 % (0-11.0); NEUTROPHILS % (MANUAL) 74 (42-76)
[2017-12-10] MEDS: INSULIN REGULAR, HUMAN 100 UNIT/ML 3 ML VIAL SQ PRN ×2 (12:21→17:18)
[2017-12-10] MEDS: CEFTRIAXONE 1 G in IV NS 0.9% 50 ML IV SCH (15:22)
[2017-12-10 15:35] LABS: APPEARANCE,URINE CLEAR (CLEAR); BILIRUBIN,URINE NEGATIVE (NEGATIVE); BLOOD, URINE 3+ Ery/uL (NEGATIVE); COLOR,URINE YELLOW (YELLOW); KETONES,URINE NEGATIVE (NEGATIVE); LEUKOCYTE ESTERASE ,URINE NEGATIVE (NEGATIVE); NITRITE, URINE NEGATIVE (NEGATIVE); PROTEIN,URINE TRACE mg/dl (NEGATIVE); UGLUCOSE 1+ mg/dL (NEGATIVE)
--- NOTE | 2017-12-10 15:45 | NUR ---
SENIOR HOUSEKEEPER NOTES PER DIETARY RECOMMENDATION TO GIVE GLUCERNA TID TO PT, WILL F/U WITH .
[2017-12-10 15:49] LABS: BACTERIA,URINE Rare /HPF (None Seen); HYALINE CASTS, URINE Rare /LPF (None Seen); RBC,URINE 21-50 /HPF (0-2); SQUAMOUS EPITHELIAL CELL,UR 0-2 /HPF (None Seen)
[2017-12-10 15:50] LABS: MUCUS,URINE Few /LPF (None Seen); URIC ACID CRYSTALS,URINE Few /HPF (None Seen)
[2017-12-10 16:00] VITALS: BP_SYST 129; BP_SYST 136; BP_DIAS 70
--- NOTE | 2017-12-10 18:42 | NUR ---
RN CLINICAL ENDING NOTES PT RESTING IN BED, WOUND TX GIVEN MD ORDERED, ALL DUE MEDS GIVEN, ALL NEEDS MET, NO ACUTE CHANGES OR SOB NOTED, WILL CONTINUE CARE.
[2017-12-10 20:00] VITALS: BP 136/69
[2017-12-11] VITALS: BP 127/72
[2017-12-11 04:00] VITALS: BP 108/64
[2017-12-11] MEDS: Sodium Bicarbonate 50 MEQ in IV NS 0.9% 1,000 ML IV PRN (05:24)
[2017-12-11] MEDS: BLOOD SUGAR DIAGNOSTIC 1 EACH STRIP IN SCH ×4 (06:50→22:05)
--- NOTE | 2017-12-11 07:15 | NUR ---
SAMPLE PREPARATION SUPERVISOR INITIAL NOTES RECEIVED REPORT AND PT FROM PM NURSE. PT RESTING IN BED, A&O X3 ROMANIAN SPEAKING, LACK OF MOTIVATION NOTED. ON 2L NC SAT ABOVE 97%, NO SOB OR ACUTE DISTRESS, ON HANG BED WITH [employer], ON TELE MON SR WITH HR 71, TIAN CATH DRAINING DARK JUAN URINE VIA GRAVITY, RT FA 20 G IV INTACT AND PATENT RUNNING FLUIDS @ 150 ML/HR NO INFILTRATION NOTED. ALL SAFETY MEASURES INITIATED, WILL CONTINUE TO MONITOR.
[2017-12-11 07:39] LABS: CALCIUM, SERUM 7.7 mg/dL (8.5-10.1); CREATININE 0.7 mg/dL (0.6-1.3); POTASSIUM 3.8 mmol/L (3.5-5.1)
[2017-12-11 07:53] LABS: BASOPHILS % (AUTO) 0.8 % (0.0-2.0); HEMATOCRIT 35 % (39-51); HEMOGLOBIN 12.3 g/dL (13.5-17.5); LYMPHOCYTES # (AUTO) 1.4 /CMM (0.8-4.8); LYMPHOCYTES % (AUTO) 24.2 % (20.0-44.0); MEAN CORPUSCULAR HEMOGLOBIN 30 PG (26.0-33.0); MEAN CORPUSCULAR HGB CONC 35 g/dl (31.0-36.0); MEAN CORPUSCULAR VOLUME 85 fL (80-96); MONOCYTES # (AUTO) 0.4 /CMM (0.1-1.30); MONOCYTES % (AUTO) 7.4 % (2.0-12.0); NEUTROPHILS # (AUTO) 3.7 /CMM (1.8-8.9); NEUTROPHILS % (AUTO) 64.6 % (43.0-81.0); PLATELET COUNT (AUTO) 78 /CMM (150-450); RDW COEFFICIENT OF VARIATION 14.7 (11.5-15.0); RED BLOOD CELL COUNT(AUTO) 4.13 MIL/uL (4.5-6.0); WHITE BLOOD COUNT (AUTO) 5.7 K/uL (4.3-11.0)
[2017-12-11 08:00] VITALS: BP 118/63
[2017-12-11] MEDS: HYDROGEL DRESSING 90 GM TUBE TP SCH (08:44)
[2017-12-11 10:26] LABS: BAND % (MANUAL) 1 % (0.0-5.0); LYMPHOCYTES % (MANUAL) 28 % (16-48); MONOCYTES % (MANUAL) 3 % (0-11.0); NEUTROPHILS % (MANUAL) 68 (42-76)
[2017-12-11 12:00] VITALS: BP 135/69
--- NOTE | 2017-12-11 13:00 | NUR ---
NURSING CARE PARTNER NOTES SPOKE WITH MERVAT MO AND STATED KEEP PT ON BICARB FOR NOW AWAITING URINALYSIS REPORT, ALSO MENTIONED ABOUT PT BEING VERY DEPRESSED, STATED OK FOR PSYCH CONSULT, AND MENTIONED HR DROPPED LAST NIGHT LOWEST 59, STATED NO NEED FOR CARDIO CONSULT PT IS ASYMPTOMATIC AND CONTINUE TO MONITOR.
[2017-12-11] MEDS: IV NS 0.9% 1,000 ML IV PRN ×2 (14:44→22:47)
[2017-12-11 16:00] VITALS: BP 138/77
[2017-12-11] MEDS: CEFTRIAXONE 1 G in IV NS 0.9% 50 ML IV SCH (16:43)
[2017-12-11 17:36] LABS: APPEARANCE,URINE CLOUDY (CLEAR); BILIRUBIN,URINE NEGATIVE (NEGATIVE); BLOOD, URINE 3+ Ery/uL (NEGATIVE); COLOR,URINE AMBER (YELLOW); KETONES,URINE NEGATIVE (NEGATIVE); LEUKOCYTE ESTERASE ,URINE NEGATIVE (NEGATIVE); NITRITE, URINE NEGATIVE (NEGATIVE); PROTEIN,URINE NEGATIVE (NEGATIVE); UGLUCOSE TRACE mg/dL (NEGATIVE)
--- NOTE | 2017-12-11 17:55 | NUR ---
PATIENT RELATIONS DIRECTOR NOTES PTS BG 139 MG/DL DID NOT GIVE INSULIN SINCE PT DID NOT EAT DINNER, WILL ENDORSE TO PM NURSE.
[2017-12-11 18:07] LABS: BACTERIA,URINE None seen /HPF (None Seen); RBC,URINE 51-80 /HPF (0-2); SQUAMOUS EPITHELIAL CELL,UR Rare /HPF (None Seen); WBC,URINE 0-2 /HPF (0-3)
--- NOTE | 2017-12-11 18:52 | NUR ---
PLUMBING INSTALLER ENDING NOTES PT RESTING IN BED, BED BATH PROVIDED, WOUND TX PROVIDED MD ORDERED, ALL DUE MEDS GIVEN, ALL NEEDS MET, PT STABLE, POSSIBLE DC TO [facility] OR [facility], PT AWARE AND CASE MANAGEMENT WORKING ON IT. WILL CONTINUE CARE MD ORDERED ENDORSE TO PM NURSE.
[2017-12-11 20:00] VITALS: BP 125/76
--- NOTE | 2017-12-11 20:54 | NUR ---
SMOOTH PLATER NOTES RECEIVED PT ON BED. SLEEPING. ON TELE MONITOR SR 65. ON NASAL CANNULA 2LPM SATURATING WELL. ON TIAN CATHETER DRAINING WELL. IV ACCESS ON RFA #20 IVNS @125ML/HR RUNNING WELL. NO SIGN OF INFILTRATION OR REDNESS OR PAIN.HEAD OF BED ELEVATED. SIDE RAILS UP. CALL LIGHT WITHIN REACH. WILL CONTINUE TO MONITOR PT CLOSELY.
[2017-12-12] VITALS: BP 138/74
[2017-12-12 04:00] VITALS: BP 148/73
--- NOTE | 2017-12-12 04:36 | NUR ---
DATA PROCESSING CLERK NOTES PT REFUSING WOUND CARE, BED BATH AND REPOSITIONING. EXPLAINED THE BENEFITS X3 . PT STILL REFUSED.
[2017-12-12] MEDS: IV NS 0.9% 1,000 ML IV PRN ×2 (06:20→14:12)
--- NOTE | 2017-12-12 07:29 | NUR ---
STEELER NOTES NO ACUTE CHANGES NOTED DURING THE SHIFT. PROVIDED COMFORT AND SAFETY. ENDORSED TO THE AM NURSE FOR OLEG.
[2017-12-12 08:00] VITALS: BP 134/72
[2017-12-12] MEDS: BLOOD SUGAR DIAGNOSTIC 1 EACH STRIP IN SCH ×2 (08:08→11:49)
[2017-12-12] MEDS: INSULIN REGULAR, HUMAN 100 UNIT/ML 3 ML VIAL SQ PRN ×2 (08:16→11:50)
[2017-12-12 08:24] LABS: APPEARANCE,URINE SL CLOUDY (CLEAR); BILIRUBIN,URINE NEGATIVE (NEGATIVE); BLOOD, URINE 3+ Ery/uL (NEGATIVE); COLOR,URINE YELLOW (YELLOW); KETONES,URINE NEGATIVE (NEGATIVE); LEUKOCYTE ESTERASE ,URINE NEGATIVE (NEGATIVE); NITRITE, URINE NEGATIVE (NEGATIVE); PROTEIN,URINE NEGATIVE (NEGATIVE); UGLUCOSE NEGATIVE (NEGATIVE)
[2017-12-12 08:51] LABS: BACTERIA,URINE Few /HPF (None Seen); SQUAMOUS EPITHELIAL CELL,UR Few /HPF (None Seen); WBC,URINE 0-2 /HPF (0-3)
[2017-12-12] MEDS: HYDROGEL DRESSING 90 GM TUBE TP SCH (09:23)
[2017-12-12 12:00] VITALS: BP 133/73
[2017-12-12] MEDS: CEFTRIAXONE 1 G in IV NS 0.9% 50 ML IV SCH (14:29)
[2017-12-12 16:00] VITALS: BP 124/70
--- NOTE | 2017-12-12 16:42 | NUR ---
RN NOTES: PT ALERT, AWAKE AND ORIENTED, ABLE TO MAKE NEEDS KNOWN. ON 02 AT 2L NC, NO SOB NOTED. RFA HL INTACT, NOTIFIED ADITHYA CHAVEZ OF [facility] THAT PT WILL BE ON ROCEPHIN X7 MORE DAYS ORDERED. EATING WELL. OBESE. NO BM TODAY. TIAN CATH REMOVED. TAKEN BY AMBULANCE AT 1645. REPORT GIVEN TO ADITHYA CHAVEZ AT [facility].
== END 2017-12-12 16:50 | DRG 720 ==
LOC: TELE1 11:53 → TELE-TD 12:11 → TELE1 12-08 15:39
PROVIDERS: ADMIT Nurse Practitioner Acute Care; ATTEND Nurse Practitioner Acute Care
DX: A41.9 Sepsis, unspecified organism (principal); N17.0 Acute kidney failure with tubular necrosis; G93.41 Metabolic encephalopathy; E87.2 Acidosis; E46 Unspecified protein-calorie malnutrition; M62.82 Rhabdomyolysis; D69.6 Thrombocytopenia, unspecified; N39.0 Urinary tract infection, site not specified; R65.20 Severe sepsis without septic shock; E66.9 Obesity, unspecified; K80.20 Calculus of gallbladder without cholecystitis without obstruction; E03.9 Hypothyroidism, unspecified; F19.10 Other psychoactive substance abuse, uncomplicated; E11.9 Type 2 diabetes mellitus without complications; E87.6 Hypokalemia; F32.9 Major depressive disorder, single episode, unspecified; W19.XXXA Unspecified fall, initial encounter; Y92.009 Unspecified place in unspecified non-institutional (private) residence as the place of occurrence of the external cause; K57.90 Diverticulosis of intestine, part unspecified, without perforation or abscess without bleeding; T14.8XXA Other injury of unspecified body region, initial encounter
CPT/HCPCS: 36415; 36600; 71045-TC; 80048-TC; 80053-TC; 80061-TC; 80076-TC; 81000-TC; 82550-TC; 82553-TC; 82803-TC; 82962-TC; 83605-TC; 83735-TC; 84100-TC; 84439-TC; 84443-TC; 84484-TC; 85025-TC; 87040-TC; 87081-TC; 87086-TC; 92611-TC; 93307-TC; 93880-TC; 97110-TC; 97112-TC; 97530-TC; A4216; A6248; A6402; J0696; J1815; J3480; J7030; Z7610

== ENCOUNTER 2019-06-03 16:46 | Inpatient (IN) | payer OTHER ==
[~2019-06-03] VITALS: Ht 172.7 cm; Wt 92.2 kg
--- NOTE | 2019-06-03 16:56 | NUR ---
[id number], from snf, altered than usual, BS412, pt to bed 5, pt on monitor, vss, nad noted, pending md hendricks
[2019-06-03] MEDS ORDERED: ACETAMINOPHEN 650 MG/SUPP.RECT RC ONE ×2 (16:59→17:30)
[2019-06-03] MEDS ORDERED: CEFEPIME 1 GM in IV D5W 50 ML IV ONE (17:00)
[2019-06-03] MEDS ORDERED: VANCOMYCIN 1 GM in IV D5W 250 ML IV ONE (17:00)
[2019-06-03] MEDS ORDERED: IV NS 0.9% 1,000 ML BAG IV ONE ×2 (17:00→17:30)
[2019-06-03 17:11] LABS: BASOPHILS # (AUTO) 0.1 /CMM (0.0-0.2); BASOPHILS % (AUTO) 0.6 % (0.0-2.0); EOSINOPHILS % (AUTO) 1.8 % (0.0-6.0); HEMATOCRIT 33 % (39-51); HEMOGLOBIN 10.3 g/dL (13.5-17.5); LYMPHOCYTES # (AUTO) 1.8 /CMM (0.8-4.8); LYMPHOCYTES % (AUTO) 20.1 % (20.0-44.0); MEAN CORPUSCULAR HGB CONC 31 g/dl (31.0-36.0); MEAN CORPUSCULAR VOLUME 97 fL (80-96); MONOCYTES # (AUTO) 0.4 /CMM (0.1-1.30); MONOCYTES % (AUTO) 4.3 % (2.0-12.0); NEUTROPHILS # (AUTO) 6.6 /CMM (1.8-8.9); NEUTROPHILS % (AUTO) 73.2 % (43.0-81.0); PLATELET COUNT (AUTO) 136 /CMM (150-450); RED BLOOD CELL COUNT(AUTO) 3.43 MIL/uL (4.5-6.0); WHITE BLOOD COUNT (AUTO) 9.1 K/uL (4.3-11.0)
[2019-06-03 17:34] LABS: CALCIUM, SERUM 8.8 mg/dL (8.5-10.1); CARBON DIOXIDE 34 mmol/L (21-32); CHLORIDE 125 mmol/L (98-107); CREATININE 1.4 mg/dL (0.6-1.3); GLUCOSE 310 mg/dL (74-106); POTASSIUM 4.3 mmol/L (3.5-5.1); UREA NITROGEN, BLOOD 71 mg/dL (7-18)
[2019-06-03] MEDS ORDERED: TRAM50TA2 PO (17:39)
[2019-06-03] MEDS ORDERED: MIRT15TA7 GT (17:39)
[2019-06-03] MEDS ORDERED: NUTR250L62 GT (17:39)
[2019-06-03] MEDS ORDERED: LACT10SO GT (17:39)
[2019-06-03] MEDS ORDERED: MIDO5TAB4 GT (17:39)
[2019-06-03] MEDS ORDERED: ASCO-492 GT (17:39)
[2019-06-03] MEDS ORDERED: MAG355OR18 GT (17:39)
[2019-06-03] MEDS ORDERED: ARGI1POW13 PO (17:39)
[2019-06-03] MEDS ORDERED: POLY17PO4 GT (17:39)
[2019-06-03] MEDS ORDERED: SENN-175 GT (17:39)
[2019-06-03] MEDS ORDERED: INSU100V10 SQ (17:39)
[2019-06-03] MEDS ORDERED: CARB-93 PO (17:39)
[2019-06-03] MEDS ORDERED: LEVO25TA7 GT (17:39)
[2019-06-03] MEDS ORDERED: ACET650T10 GT (17:39)
[2019-06-03] MEDS ORDERED: ASPI-605 GT (17:39)
[2019-06-03] MEDS ORDERED: IPRA0.2S49 IH (17:39)
[2019-06-03 17:42] LABS: APPEARANCE,URINE Clear (CLEAR); BILIRUBIN,URINE Negative (NEGATIVE); BLOOD, URINE Negative Ery/uL (NEGATIVE); COLOR,URINE Yellow (YELLOW); KETONES,URINE Negative (NEGATIVE); LEUKOCYTE ESTERASE ,URINE Negative (NEGATIVE); NITRITE, URINE Negative (NEGATIVE); PH,URINE 5.5 (5.0-8.0); PROTEIN,URINE 30 mg/dl (NEGATIVE); UGLUCOSE Negative (NEGATIVE); UROBILINOGEN,URINE 0.2 EU/dL (0.2)
[2019-06-03 17:44] LABS: ALANINE AMINOTRANSFERASE 17 U/L (12-78); ALBUMIN 2.8 g/dL (3.4-5.0); ALKALINE PHOSPHATASE 56 U/L (46-116); ASPARTATE AMINOTRANSFERASE 20 U/L (15-37); B-TYPE NATRIURETIC PEPTIDE 335 PG/ML (0-125); BILIRUBIN,DIRECT 0.1 mg/dL (0.0-0.2); BILIRUBIN,TOTAL 0.2 mg/dL (0.2-1.0); TOTAL PROTEIN, SERUM 8.9 g/dL (6.4-8.2)
[2019-06-03 17:54] LABS: SODIUM SERUM 166 mmol/L (136-145)
--- NOTE | 2019-06-03 18:07 | NUR ---
GAVE MOVESHEET TO ADMITTING
[2019-06-03 18:18] LABS: BACTERIA,URINE Moderate /HPF (None Seen); RBC,URINE 0-2 /HPF (0-2); SQUAMOUS EPITHELIAL CELL,UR Moderate /HPF (None Seen); WBC,URINE 0-2 /HPF (0-3)
--- NOTE | 2019-06-03 18:42 | NUR ---
VERBAL AUTH FOR KATIE, SEND CLINICALS FAX CLINICALS : [phone]
[2019-06-03] MEDS ORDERED: IV NS 0.9% 1,000 ML IV PRN (20:05)
--- NOTE | 2019-06-03 20:10 | NUR ---
report given to karl hall for rolan pt tranposrted to 3rd floor
[2019-06-03 20:24] VITALS: BP 81/58
[2019-06-03] MEDS ORDERED: FEE PK DOSING 1 MIN EA MC ONE (20:25)
[2019-06-03 20:30] VITALS: BP 90/59
[2019-06-03] MEDS ORDERED: ONDANSETRON HCL/PF 4 MG/2 ML VIAL IVP PRN (20:30)
[2019-06-03] MEDS ORDERED: HYDROCODONE/APAP 5/325MG 1 EACH TABLET PO PRN (20:30)
[2019-06-03] MEDS ORDERED: MAG HYDROX/AL HYDROX/SIMETH 30 ML UDC PO PRN (20:30)
[2019-06-03] MEDS ORDERED: ACETAMINOPHEN 325 MG TABLET PO PRN (20:30)
[2019-06-03] MEDS ORDERED: MAGNESIUM HYDROXIDE 30 ML UDC PO PRN (20:30)
[2019-06-03] MEDS ORDERED: ZOLPIDEM TARTRATE 5 MG TABLET PO PRN (20:30)
--- NOTE | 2019-06-03 20:30 | NUR ---
MS FELTER TENNIS BALLS NOTES Patient received from ED via gurney, accompanied by ER staff. Patient is A/O x1, not responsive to name or touch. From ER, patient came on 2L O2 via NC now breathing even and unlabored, no SOB noted. Patient extremities flaccid, unable to move, bed bound. G tube is in place and intact. IV located on L AC #20 and L FA #20 patent and intact. No signs of acute distress noted. Tele monitors in place reading SR 80. Patient oriented to room and staff. Skin assessment done and placed in chart. All belongings accounted for. Safety precautions in place with bed in lowest position, call light within reach, breaks on, and side rails up x2. Will continue to monitor.
[2019-06-03] MEDS: PIPERACILLIN /TAZOBACTAM 4.5 G in IV D5W 50 ML IV SCH (23:39)
[2019-06-04] VITALS (7 sets, daily range): BP systolic 81–98; BP diastolic 50–60
--- NOTE | 2019-06-04 00:15 | NUR ---
MS RN NOTES Routine vitals done, patients blood pressure 81/58. MD made aware. Will continue to monitor.
[2019-06-04] MEDS: MIRTAZAPINE 15 MG TABLET GT SCH ×2 (00:16→21:03)
[2019-06-04] MEDS ORDERED: DEXTROSE 50%-WATER 50 ML DISP.SYRIN IV PRN (00:30)
[2019-06-04] MEDS ORDERED: IPRATROPIUM NEB FS 0.5 MG/2.5 ML AMPUL.NEB IH PRN (00:30)
[2019-06-04] MEDS ORDERED: TRAMADOL HCL 50 MG TABLET PO PRN (00:30)
[2019-06-04] MEDS: MIDODRINE HCL (5MG) 5 MG TABLET GT PRN ×3 (00:33→17:10)
--- NOTE | 2019-06-04 00:41 | NUR ---
MS RN NOTES MD reconciled home meds. Midorine 5 MG administered from GT tube to increase blood pressure. Will continue to monitor.
[2019-06-04] MEDS: IV D5W 1,000 ML IV PRN ×3 (00:59→20:57)
--- NOTE | 2019-06-04 04:30 | NUR ---
MS RN NOTES PATIENT BLOOD PRESSURE 87/ 57. PLACED HIM IN [place] POSITION. D5 RUNNING 125 ML/ HR. MADE AWARE.
[2019-06-04] MEDS ORDERED: IV NS 0.9% 500 ML IV STA (04:50)
--- NOTE | 2019-06-04 04:54 | NUR ---
MS RN NOTES NS 500 ML BOLUS PER MD GIVEN TO PATIENT. WILL CONTINUE TO MONITOR.
--- NOTE | 2019-06-04 05:37 | NUR ---
MS RN NOTES BLOOD PRESSURE INCREASED TO 97/ 59. PATIENT REMAINS IN [place] POSITION. WILL CONTINUE TO MONITOR.
[2019-06-04] MEDS: PIPERACILLIN /TAZOBACTAM 4.5 G in IV D5W 50 ML IV SCH ×2 (05:57→11:05)
[2019-06-04] MEDS ORDERED: Medication Not On Formulary EA (Lactulose (Duphalac) 30 ML) GT SCH (06:00)
[2019-06-04] MEDS: LACTULOSE 10 G/15 ML UDC (PYXIS) GT SCH ×4 (06:08→23:53)
[2019-06-04] MEDS: BLOOD SUGAR DIAGNOSTIC 1 EACH STRIP VI SCH ×4 (06:44→21:37)
--- NOTE | 2019-06-04 06:45 | NUR ---
MS RN NOTES fsbs 188 No coverage due to not eating or receiving Gtube feeding
--- NOTE | 2019-06-04 07:08 | NUR ---
MS RN CLOSING NOTES PATIENT CURRENTLY RESTING IN BED A/O X 0, NO RESPONSIVE TO NAME OR STIMULUS. PATIENT MOANS AT RANDOM TIMES. ON 2L O2 VIA NC, BREATHING EVEN AND UNLABORED, NO SOB NOTED. NO SIGNS OF ACUTE DISTRESS. PATIENT KEPT CLEAN AND DRY THROUGHOUT THE NIGHT. ALL NEEDS ATTENDED TO. G TUBE IN PLACE PATENT AND INTACT. EXTREMITIES OFFLOADED AND REPOSITIONED. SAFETY PRECAUTIONS IN PLACE WITH BED IN LOWEST POSITION, CALL LIGHT WITHIN REACH, BREAKS ON, AND SIDE RAILS UP X2. WILL ENDORSE TO ONCOMING SHIFT ABOUT OLEG.
[2019-06-04 07:17] LABS: BASOPHILS % (AUTO) 0.4 % (0.0-2.0); EOSINOPHILS % (AUTO) 4.1 % (0.0-6.0); HEMATOCRIT 32 % (39-51); LYMPHOCYTES # (AUTO) 1.9 /CMM (0.8-4.8); LYMPHOCYTES % (AUTO) 30.3 % (20.0-44.0); MEAN CORPUSCULAR HGB CONC 31 g/dl (31.0-36.0); MEAN CORPUSCULAR VOLUME 97 fL (80-96); MONOCYTES # (AUTO) 0.3 /CMM (0.1-1.30); MONOCYTES % (AUTO) 5.2 % (2.0-12.0); NEUTROPHILS # (AUTO) 3.7 /CMM (1.8-8.9); PLATELET COUNT (AUTO) 104 /CMM (150-450); RED BLOOD CELL COUNT(AUTO) 3.28 MIL/uL (4.5-6.0); WHITE BLOOD COUNT (AUTO) 6.2 K/uL (4.3-11.0)
[2019-06-04 07:20] LABS: ALBUMIN 2.5 g/dL (3.4-5.0); BILIRUBIN,TOTAL 0.4 mg/dL (0.2-1.0); CREATININE 1.1 mg/dL (0.6-1.3); MAGNESIUM 3.1 mg/dL (1.8-2.4); PHOSPHORUS 3.4 mg/dL (2.5-4.9); POTASSIUM 4.3 mmol/L (3.5-5.1)
[2019-06-04 07:27] LABS: THYROID STIMULATING HORMONE 5.129 uIU/mL (0.358-3.74)
--- NOTE | 2019-06-04 08:00 | NUR ---
TELE/RN NOTES RECEIVED A PHONE CALL FROM THE LAB REGARDING THE SODIUM LEVEL OF 162. INFORMED DR. DIANE REGARDING THE CRITICAL LAB RESULT. AWAITING FOR ORDERS. PATIENT CONTINUES TO REMAIN IN STABLE CONDITION. WILL CONTINUE TO MONITOR CLOSELY.
[2019-06-04] MEDS: CARBIDOPA/LEVODOPA 25/100 MG 1 UDTAB PO SCH ×3 (08:21→16:10)
[2019-06-04] MEDS: ASPIRIN EC 81 MG TABLET.DR PO SCH (08:21)
[2019-06-04] MEDS: SENNOSIDES 8.6 MG TABLET GT SCH (08:21)
[2019-06-04] MEDS: LEVOTHYROXINE SODIUM 25 MCG TABLET GT SCH (08:21)
[2019-06-04] MEDS: POLYETHYLENE GLYCOL 3350 17 GM POWD.PACK GT SCH ×2 (08:21→16:10)
--- NOTE | 2019-06-04 09:15 | NUR ---
TELE/RN NOTES PATIENT WAS SEEN AND EVALUATED BY DR. DIANE, PER DR. CONTINUE HIS ORDERS OF D5W AND TO FLUSH GT WITH WATER. PATIENT CONTINUES TO REMAIN IN STABLE CONDITION. WILL CONTINUE TO MONITOR CLOSELY.
[2019-06-04 09:20] LABS: ABG BASE EXCESS 2.6 mmol/L; ABG OXYGEN SATURATION 98.3 % (92.0-98.5); ABG PCO2 46.7 mmHg (35.0-45.0); ABG PH 7.393 (7.350-7.450); ABG PO2 138.9 mmHg (75.0-100.0); COHb 0.9 % (0.5-1.5); MetHb 0.3 % (0.0-1.5); O2Hb 97.1 % (94.0-97.0); SITE, ABG Right Radial; VENT MODE, BG 2L NC
[2019-06-04] MEDS: TWOCAL HN 1,000 ML LIQUID GT PRN (09:21)
[2019-06-04] MEDS: INSULIN REGULAR, HUMAN 100 UNIT/ML 3 ML VIAL SQ PRN ×2 (11:26→17:13)
[2019-06-04] MEDS: VANCOMYCIN 1.5 GM in IV D5W 500 ML IV SCH (12:09)
[2019-06-04] MEDS: PIPERACILLIN /TAZOBACTAM 3.375 G in IV D5W 100 ML IV SCH (17:34)
--- NOTE | 2019-06-04 18:34 | NUR ---
MS/RN CLOSING NOTES PATIENT CONTINUES TO REMAIN IN STABLE CONDITION THROUGHOUT THE SHIFT. PROVIDED COMFORT AND SAFETY. PATIENT ABLE TO TOLERATE MEDS AND FEEDING WELL. NO RESIDUAL. HOB ELEVATED AT ALL TIMES. IV ACCESS INTACT AND PATENT. FLUSHING WELL. GT INTACT WELL. FLUSHED WITH H2O. ALL NEEDS ANTICIPATED. CALL LIGHT WITHIN REACHED. BED LOCKED AND IN LOWEST POSITION. SAFETY MAINTAINED. WILL CONTINUE TO MONITOR CLOSELY. ENDORSED TO PM NURSE FOR OLEG.
--- NOTE | 2019-06-04 19:00 | NUR ---
RN medsur opening notes Pt is resting in bed comfortably. Respiration is normal in 2 L NC. No SOB. No S/S of distress noted. IV sites at LAC# 20 is clean, intact and patent. Iv sites at LFA# 20 is clean, intact and patent. G-tube is intact and patent. With ongoing G tube feeding with twocal Hn liquid at 55 ml/hr with 0 residual. Pt tolerated feeding well. Safety precautions is maintained. Bed at low position, brakes locked, siderails upX3 and call light is within reach. Will continue to monitor.
[2019-06-04] MEDS: INSULIN GLARGINE, 100 UNIT/ML CARTRIDGE SQ SCH (21:41)
[2019-06-04] MEDS: *INSULIN REGULAR(HUMULIN R)HUM 100 UNIT/ML VIAL SQ PRN (21:42)
[2019-06-05] MEDS: PIPERACILLIN /TAZOBACTAM 3.375 G in IV D5W 100 ML IV SCH ×3 (00:20→16:57)
[2019-06-05] MEDS: MIDODRINE HCL (5MG) 5 MG TABLET GT PRN ×3 (04:46→16:48)
[2019-06-05] MEDS: LACTULOSE 10 G/15 ML UDC (PYXIS) GT SCH ×3 (05:16→16:48)
[2019-06-05] MEDS: VANCOMYCIN 1.5 GM in IV D5W 500 ML IV SCH (05:17)
[2019-06-05] MEDS: TWOCAL HN 1,000 ML LIQUID GT PRN (05:39)
[2019-06-05 06:23] LABS: CREATININE 1.1 mg/dL (0.6-1.3); POTASSIUM 4.1 mmol/L (3.5-5.1)
[2019-06-05 06:24] LABS: BASOPHILS % (AUTO) 0.4 % (0.0-2.0); EOSINOPHILS % (AUTO) 6.1 % (0.0-6.0); HEMATOCRIT 25 % (39-51); HEMOGLOBIN 7.9 g/dL (13.5-17.5); LYMPHOCYTES # (AUTO) 1.4 /CMM (0.8-4.8); LYMPHOCYTES % (AUTO) 20.8 % (20.0-44.0); MEAN CORPUSCULAR HGB CONC 32 g/dl (31.0-36.0); MEAN CORPUSCULAR VOLUME 95 fL (80-96); MONOCYTES # (AUTO) 0.3 /CMM (0.1-1.30); MONOCYTES % (AUTO) 4.4 % (2.0-12.0); NEUTROPHILS # (AUTO) 4.8 /CMM (1.8-8.9); NEUTROPHILS % (AUTO) 68.3 % (43.0-81.0); PLATELET COUNT (AUTO) 106 /CMM (150-450); RED BLOOD CELL COUNT(AUTO) 2.64 MIL/uL (4.5-6.0)
--- NOTE | 2019-06-05 06:40 | NUR ---
RN medsurg closing notes Pt is resting in bed comfortably. Respiration is normal in 2 L NC. No SOB. No S/S of distress noted. Peripheral IV sites on LAC and LFA are clean, intact and patent. Gtube feeding is in placed, intact and patent. Gtube feeding with twocal HN liquid at 55 ml/hr with 0 residual. Pt tolerated well. Routine meds were given as ordered. Kept Pt clean, dry, warm and comfortable. Safety precautions is maintained. Bed at low position, brakes locked, side rails upX3 and call light is within reach. Will endorse to morning nurse for OLEG.
[2019-06-05] MEDS: BLOOD SUGAR DIAGNOSTIC 1 EACH STRIP VI SCH ×4 (06:41→22:28)
[2019-06-05] MEDS: INSULIN REGULAR, HUMAN 100 UNIT/ML 3 ML VIAL SQ PRN ×3 (06:44→17:04)
[2019-06-05 08:00] VITALS: BP 87/50
--- NOTE | 2019-06-05 08:05 | NUR ---
ms rn received on bed, non verbal patient, gtube intact w/ ongoing feeding tolerated well, no s/s of distress, will monitor patient.
[2019-06-05] MEDS: ASPIRIN EC 81 MG TABLET.DR PO SCH (08:13)
[2019-06-05] MEDS: SENNOSIDES 8.6 MG TABLET GT SCH (08:13)
[2019-06-05] MEDS: VITAMIN B COMP W-C 1 TAB TABLET PO SCH (08:13)
[2019-06-05] MEDS: LEVOTHYROXINE SODIUM 25 MCG TABLET GT SCH (08:13)
[2019-06-05] MEDS: CARBIDOPA/LEVODOPA 25/100 MG 1 UDTAB PO SCH ×3 (08:13→16:48)
[2019-06-05] MEDS: POLYETHYLENE GLYCOL 3350 17 GM POWD.PACK GT SCH ×2 (08:13→16:48)
--- NOTE | 2019-06-05 09:00 | NUR ---
ms rn due med given via g tube ,all needs attended.
--- NOTE | 2019-06-05 10:16 | NUR ---
WOUND CARE CONSULT: PT PRESENTS WITH STAGE 3 ULCERS TO SACRUM AND LEFT BUTTOCK WITH SURROUNDING SCARRING, RT THIGH SKIN TEAR, RT HIP SCAR, RT LEG SCARRING, DISCOLORED AREA TO LEFT PLANTAR FOOT, ALL PRESENT ON ADMISSION. PT IS INCONTINENT. RECOMMENDATIONS MADE FOR SKIN PROTECTION. DISCUSSED WITH NURSING STAFF. FIRST STEP LOW AIRLOSS MATTRESS ORDERED. SURGICAL CONSULT REQUESTED FROM DR MENENDEZ. WILL SEE PRN. MANSFIELD IN AGREEMENT WITH PLAN OF CARE. Addendum: 06/05/19 at 1018 by KAMI ESCALONA WNDNU Amended: Links added.
[2019-06-05] MEDS: IV D5W 1,000 ML IV PRN ×2 (11:46→22:43)
[2019-06-05] MEDS: HYDROGEL DRESSING 90 GM TUBE TP SCH (13:06)
[2019-06-05 16:00] VITALS: BP 84/46
--- NOTE | 2019-06-05 17:57 | NUR ---
ms rn on bed, no distress noted.
[2019-06-05] MEDS: MIRTAZAPINE 15 MG TABLET GT SCH (22:14)
[2019-06-05] MEDS: INSULIN GLARGINE, 100 UNIT/ML CARTRIDGE SQ SCH (22:16)
[2019-06-05] MEDS: *INSULIN REGULAR(HUMULIN R)HUM 100 UNIT/ML VIAL SQ PRN (22:18)
[2019-06-06] MEDS: LACTULOSE 10 G/15 ML UDC (PYXIS) GT SCH ×4 (00:17→17:08)
--- NOTE | 2019-06-06 00:44 | NUR ---
MS/RN PATIENT IS SLEEPING, AROUSABLE, APPEAR COMFORTABLE, NO SIGNS OF DISTRESS NOTED, CALL LIGHT IN REACH. WILL CONTINUE TO MONITOR.
[2019-06-06] MEDS: PIPERACILLIN /TAZOBACTAM 3.375 G in IV D5W 100 ML IV SCH ×3 (01:06→16:11)
[2019-06-06] MEDS: TWOCAL HN 1,000 ML LIQUID GT PRN (02:38)
[2019-06-06] MEDS: INSULIN REGULAR, HUMAN 100 UNIT/ML 3 ML VIAL SQ PRN ×3 (06:19→22:13)
[2019-06-06] MEDS: BLOOD SUGAR DIAGNOSTIC 1 EACH STRIP VI SCH ×4 (06:20→21:57)
[2019-06-06] MEDS: IV D5W 1,000 ML IV PRN (06:37)
--- NOTE | 2019-06-06 06:41 | NUR ---
MS/RN PATIENT IS SLEEPING, AROUSABLE, APPEAR COMFORTABLE, NO SIGNS OF DISTRESS NOTED, CALL LIGHT IN REACH, HOB ELEVATED, ALL NEEDS ATTENDED AT THIS TIME, WILL CONTINUE TO MONITOR.
[2019-06-06 07:04] LABS: BASOPHILS % (AUTO) 0.3 % (0.0-2.0); EOSINOPHILS % (AUTO) 4.4 % (0.0-6.0); HEMATOCRIT 23 % (39-51); HEMOGLOBIN 7.6 g/dL (13.5-17.5); LYMPHOCYTES # (AUTO) 1.2 /CMM (0.8-4.8); LYMPHOCYTES % (AUTO) 19.1 % (20.0-44.0); MEAN CORPUSCULAR HGB CONC 33 g/dl (31.0-36.0); MEAN CORPUSCULAR VOLUME 93 fL (80-96); MONOCYTES # (AUTO) 0.2 /CMM (0.1-1.30); NEUTROPHILS # (AUTO) 4.4 /CMM (1.8-8.9); NEUTROPHILS % (AUTO) 72.2 % (43.0-81.0); PLATELET COUNT (AUTO) 107 /CMM (150-450); RED BLOOD CELL COUNT(AUTO) 2.51 MIL/uL (4.5-6.0); WHITE BLOOD COUNT (AUTO) 6.1 K/uL (4.3-11.0)
[2019-06-06 07:10] LABS: CALCIUM, SERUM 8.1 mg/dL (8.5-10.1); POTASSIUM 3.5 mmol/L (3.5-5.1)
--- NOTE | 2019-06-06 07:51 | NUR ---
RN OPENING NOTES Patient received on 2L nasal cannula, no sob noted, patient remains a/o x1. Patient remains NPO with g tube at this time. L AC 20 with d5w at 125 ml per hour. Bed at the lowest setting, call light within reach, side rails up x2.
[2019-06-06 08:00] VITALS: BP 97/62
[2019-06-06] MEDS: VITAMIN B COMP W-C 1 TAB TABLET PO SCH (09:15)
[2019-06-06] MEDS: POLYETHYLENE GLYCOL 3350 17 GM POWD.PACK GT SCH ×2 (09:15→17:08)
[2019-06-06] MEDS: CARBIDOPA/LEVODOPA 25/100 MG 1 UDTAB PO SCH ×3 (09:15→17:08)
[2019-06-06] MEDS: LEVOTHYROXINE SODIUM 25 MCG TABLET GT SCH (09:15)
[2019-06-06] MEDS: HYDROGEL DRESSING 90 GM TUBE TP SCH (09:15)
[2019-06-06] MEDS: ASPIRIN EC 81 MG TABLET.DR PO SCH (09:15)
[2019-06-06] MEDS: SENNOSIDES 8.6 MG TABLET GT SCH (09:15)
[2019-06-06 13:17] LABS: ALBUMIN 2.2 g/dL (3.4-5.0); BILIRUBIN,DIRECT 0.1 mg/dL (0.0-0.2); BILIRUBIN,TOTAL 0.2 mg/dL (0.2-1.0); MAGNESIUM 2.8 mg/dL (1.8-2.4); PHOSPHORUS 3.1 mg/dL (2.5-4.9); TOTAL PROTEIN, SERUM 6.9 g/dL (6.4-8.2)
[2019-06-06 16:00] VITALS: BP 102/59
[2019-06-06] MEDS: *INSULIN REGULAR(HUMULIN R)HUM 100 UNIT/ML VIAL SQ PRN (16:37)
--- NOTE | 2019-06-06 18:23 | NUR ---
RN CLOSING NOTES Patient remains on 2l nasal cannula, no sob noted, patient awake and is able to answer questions. NPO G tube at this time. D5W @ 125 ml per hour. L AC 20. Bed at the lowest setting, call light within reach, side rails up x2. Will give report to NOC RN for OLEG bedside.
--- NOTE | 2019-06-06 19:49 | NUR ---
ms kosta initial notes received report from am nurse Radha , and saw pt in bed on semi fowlers position with side rails x2 up . still on g-tubed feeding at 55ml/hr . no aspiration noted. breathing even and non-labored not in any acute distress noted. heplock at this time, patent and intact. kept him warm and comfortable at all times. side rails x2 yp and bed in low and lock in position. place call light at reach.
[2019-06-06 20:00] VITALS: BP 102/64
[2019-06-06] MEDS: MIRTAZAPINE 15 MG TABLET GT SCH (21:56)
--- NOTE | 2019-06-06 22:00 | NUR ---
ms motor checker notes blood sugar checked done 151, 2 units of insulin given erma SQs ordered. no signs of hypo glycemia noted. still on G tube feeding. will continue monitoring.
[2019-06-06] MEDS: INSULIN GLARGINE, 100 UNIT/ML CARTRIDGE SQ SCH (22:05)
[2019-06-07] MEDS: PIPERACILLIN /TAZOBACTAM 3.375 G in IV D5W 100 ML IV SCH ×2 (01:22→09:35)
[2019-06-07] MEDS: LACTULOSE 10 G/15 ML UDC (PYXIS) GT SCH ×4 (01:38→17:11)
[2019-06-07] MEDS: Z GUARD REMEDY 2 OZ OINT TP PRN ×2 (03:46→06:32)
[2019-06-07] MEDS: TWOCAL HN 1,000 ML LIQUID GT PRN (03:47)
[2019-06-07 06:18] LABS: CALCIUM, SERUM 8.3 mg/dL (8.5-10.1); CREATININE 0.9 mg/dL (0.6-1.3); POTASSIUM 3.4 mmol/L (3.5-5.1)
[2019-06-07] MEDS: BLOOD SUGAR DIAGNOSTIC 1 EACH STRIP VI SCH ×3 (06:24→17:30)
[2019-06-07 06:30] LABS: BASOPHILS % (AUTO) 0.2 % (0.0-2.0); EOSINOPHILS % (AUTO) 2.4 % (0.0-6.0); HEMATOCRIT 23 % (39-51); HEMOGLOBIN 7.6 g/dL (13.5-17.5); LYMPHOCYTES # (AUTO) 1.4 /CMM (0.8-4.8); LYMPHOCYTES % (AUTO) 20.3 % (20.0-44.0); MEAN CORPUSCULAR HGB CONC 33 g/dl (31.0-36.0); MEAN CORPUSCULAR VOLUME 92 fL (80-96); MONOCYTES # (AUTO) 0.3 /CMM (0.1-1.30); NEUTROPHILS % (AUTO) 73.1 % (43.0-81.0); PLATELET COUNT (AUTO) 114 /CMM (150-450); RED BLOOD CELL COUNT(AUTO) 2.52 MIL/uL (4.5-6.0); WHITE BLOOD COUNT (AUTO) 6.8 K/uL (4.3-11.0)
[2019-06-07] MEDS: INSULIN REGULAR, HUMAN 100 UNIT/ML 3 ML VIAL SQ PRN ×2 (06:32→12:00)
--- NOTE | 2019-06-07 07:00 | NUR ---
ms kosta closing notes 'pt resting after morning care done, stable erma the night and slept well but responsive when you asked him. blood sugar checked done 163 3 units of insulin given erma SQ as ordered. no signs of any discomfort or any acute distress. still on g-tube feeding no aspiration noted. kept him warm and comfortable at all times. endorse to am nurse for continuity of care. place call light at reach.
--- NOTE | 2019-06-07 07:16 | NUR ---
RN OPENING NOTES Patient received on 2l nasal cannula, no sob noted, patient denies pain at this time. Patient remains a/o x 2 and is able to verbally answer questions. G tube feeding on @ 55 ml per hour at this time. Bed at the lowest setting, call light within reach, side rails up x2.
[2019-06-07] MEDS: ASPIRIN EC 81 MG TABLET.DR PO SCH (08:08)
[2019-06-07] MEDS: VITAMIN B COMP W-C 1 TAB TABLET PO SCH (08:08)
[2019-06-07] MEDS: LEVOTHYROXINE SODIUM 25 MCG TABLET GT SCH (08:08)
[2019-06-07] MEDS: POLYETHYLENE GLYCOL 3350 17 GM POWD.PACK GT SCH ×2 (08:08→17:09)
[2019-06-07] MEDS: SENNOSIDES 8.6 MG TABLET GT SCH (08:08)
[2019-06-07] MEDS: CARBIDOPA/LEVODOPA 25/100 MG 1 UDTAB PO SCH ×3 (08:08→17:09)
[2019-06-07 08:09] VITALS: BP 90/60
[2019-06-07] MEDS: HYDROGEL DRESSING 90 GM TUBE TP SCH (08:09)
[2019-06-07] MEDS ORDERED: POTASSIUM CHLORIDE 20 MEQ POWDER PACKET GT SCH (10:30)
[2019-06-07] MEDS ORDERED: LEVO500T75 PO (10:49)
[2019-06-07 16:00] VITALS: BP 99/52
--- NOTE | 2019-06-07 18:20 | NUR ---
rn forensic notes patient discharged at this time. no sob noted, patient denies pain at this time. patient has all paper work with him. IV line removed and has minimal bleeding noted. Patient's photo taken and is in the chart.
== END 2019-06-07 18:10 | DRG 137 ==
LOC: ER 16:47 → MED 19:59 → TELE 22:02 → MED 06-04 09:14
PROVIDERS: ADMIT Internal Medicine; ATTEND Internal Medicine
DX: J69.0 Pneumonitis due to inhalation of food and vomit (principal); J96.21 Acute and chronic respiratory failure with hypoxia; N17.0 Acute kidney failure with tubular necrosis; E43 Unspecified severe protein-calorie malnutrition; G93.1 Anoxic brain damage, not elsewhere classified; D68.59 Other primary thrombophilia; G93.41 Metabolic encephalopathy; E86.0 Dehydration; J15.6 Pneumonia due to other Gram-negative bacteria; E87.0 Hyperosmolality and hypernatremia; E11.9 Type 2 diabetes mellitus without complications; E03.9 Hypothyroidism, unspecified; I10 Essential (primary) hypertension; M62.40 Contracture of muscle, unspecified site; Z91.018 Allergy to other foods; F15.90 Other stimulant use, unspecified, uncomplicated; Z79.4 Long term (current) use of insulin; Z79.899 Other long term (current) drug therapy; Z79.82 Long term (current) use of aspirin; G90.8 Other disorders of autonomic nervous system; E86.1 Hypovolemia; Y95 Nosocomial condition; G20 Parkinson's disease; D63.8 Anemia in other chronic diseases classified elsewhere; Z82.49 Family history of ischemic heart disease and other diseases of the circulatory system; Z86.69 Personal history of other diseases of the nervous system and sense organs; Z87.820 Personal history of traumatic brain injury; Z93.1 Gastrostomy status
CPT/HCPCS: 36415; 36600; 71045-TC; 80048-TC; 80053-TC; 80061-TC; 80076-TC; 80202-TC; 81000-TC; 82962-TC; 83605-TC; 83735-TC; 83880; 84100-TC; 84443-TC; 84484-TC; 85025-TC; 85730-TC; 86850-TC; 87040-TC; 87081-TC; 87086-TC; A6248; G0378; J0692; J1815; J2543; J3370; J3490; J7030; J7040; J7042; J7050; J7060; J7070